=== PATIENT | male | born 1990 | race Two or more races ===

== ENCOUNTER 2019-11-28 12:17 | Emergency (ER) | payer OTHER ==
[~2019-11-28] VITALS: Ht 182.9 cm; Wt 79.4 kg
[2019-11-28 13:07] VITALS: BP_SYST 124
--- NOTE | 2019-11-28 13:24 | NUR ---
Placed in chair 2. MSE completed by myself.
[2019-11-28] MEDS ORDERED: KETOROLAC TROMETHAMINE 60 MG/2 ML VIAL IM ONE (13:45)
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
--- NOTE | 2019-11-28 14:52 | NUR ---
Patient given written and verbal discharge instructions and verbalizes understanding. ER MD discussed with patient the results and treatment provided. Patient in stable condition. ID arm band removed. Rx of SOMA, VOLTAREN, AND MOTRIN given. Patient educated on pain management and to follow up with PMD. Pain Scale 3. Opportunity for questions provided and answered. Medication side effect fact sheet provided.
[2019-11-28 15:00] VITALS: BP_SYST 124
== END 2019-11-28 15:00 | disposition home or self-care (01) ==
LOC: SED 12:17
DX: S16.1XXA Strain of muscle, fascia and tendon at neck level, initial encounter (principal); S83.92XA Sprain of unspecified site of left knee, initial encounter; S43.402A Unspecified sprain of left shoulder joint, initial encounter; M94.0 Chondrocostal junction syndrome [Tietze]; R03.0 Elevated blood-pressure reading, without diagnosis of hypertension; V49.69XA Unspecified car occupant injured in collision with other motor vehicles in traffic accident, initial encounter; Y93.89 Activity, other specified; Y92.411 Interstate highway as the place of occurrence of the external cause; Y99.8 Other external cause status
CPT/HCPCS: 71046; 72040; 73030; 73564; 96372; 99283; J1885